=== PATIENT | female | born 1960 | race Native Hawaiian/Other Pacific Islander ===

== ENCOUNTER 2016-07-22 08:28 | Day surgery (SDC) | payer OTHER ==
[~2016-07-22] VITALS: Ht 160 cm; Wt 93.0 kg
[2016-07-22] MEDS ORDERED: ZYRTEC ALLERGY10 MG PO (11:05)
[2016-07-22] MEDS ORDERED: LIDOCAINE 2% 100 MG/5 ML SYR IVP ONE (11:14)
[2016-07-22] MEDS ORDERED: PROPOFOL 200 MG/20 ML VIAL IV ONE (11:14)
[2016-07-22] MEDS ORDERED: SEVOFLURANE 250 ML BTL INH ONE (11:14)
[2016-07-22] MEDS ORDERED: MIDAZOLAM 2 MG/2 ML VIAL ONE (11:28)
[2016-07-22] MEDS ORDERED: HYDROmorphone 1 MG/ML AMP IVP PRN (11:45)
[2016-07-22] MEDS ORDERED: ONDANSETRON 4 MG/2 ML VIAL IVP PRN (11:45)
[2016-07-22] MEDS ORDERED: fentaNYL 0.05 MG/ML VIAL ONE (12:11)
[2016-07-22] MEDS ORDERED: LACTATED RINGERS 1,000 ML IV SCH (12:36)
[2016-07-22] MEDS ORDERED: IBUPROFEN 600 MG TAB PO PRN (12:40)
== END 2016-07-22 14:55 | disposition home or self-care (01) ==
LOC: MDS 08:28 → MMU 08:29 → MDS 14:55
PROVIDERS: ATTEND Obstetrics & Gynecology
DX: N95.0 Postmenopausal bleeding (principal); I25.119 Atherosclerotic heart disease of native coronary artery with unspecified angina pectoris; E03.9 Hypothyroidism, unspecified; I63.9 Cerebral infarction, unspecified; N19 Unspecified kidney failure; E66.3 Overweight; D64.9 Anemia, unspecified; K21.9 Gastro-esophageal reflux disease without esophagitis; M19.90 Unspecified osteoarthritis, unspecified site; F03.90 Unspecified dementia, unspecified severity, without behavioral disturbance, psychotic disturbance, mood disturbance, and anxiety; F17.210 Nicotine dependence, cigarettes, uncomplicated
CPT/HCPCS: 36415; 58120; 71010; 80053; 81001; 85025; 85610; 85730; 93005; J2001; J2250; J2704; J3010; J7120